=== PATIENT | male | born 1995 | race Caucasian/White ===

== ENCOUNTER 2017-07-08 21:31 | Emergency (ER) | payer BC ==
[~2017-07-08] VITALS: Ht 175.3 cm; Wt 67.2 kg
[2017-07-08 21:38] VITALS: TEMP 37.2; Ht 175.3 cm; Wt 67.2 kg
--- NOTE | 2017-07-08 22:26 | DIAGNOSTIC IMAGING REPORT ---
LEFT SHOULDER 2 VIEWS HISTORY: L shoulder dislocation and relocation COMPARISON: None. FINDINGS: No acute fracture or dislocation within the left shoulder. The left clavicle is intact. Small lucencies at the glenoid may be due to old postoperative change. Soft tissues are unremarkable. No radiopaque foreign bodies. IMPRESSION: No acute fracture or dislocation within the left shoulder. Electronically signed by: Payam Calvillo M.D. 07/08/2017 10:24 PM Dictated Date/Time: 07/08/2017 10:23 PM
[2017-07-08 23:14] VITALS: BP 138/81; PULSE 87; O2SAT 99
--- NOTE | 2017-07-09 00:55 | EMERGENCY ROOM VISIT NOTE ---
History Report prepared by Christian: Tommy Tanner Under the Supervision of: Dr. Russ Bowie D.O. First contact with patient: 21:51 Chief Complaint: SHOULDER DISLOCATION Stated Complaint: L SHOULDER DISLOCATION History of Present Illness The patient is a 21 year old male who presents to the Emergency Room with complaints of a sudden shoulder dislocation occurring prior to arrival. The patient states that he was playing basketball and went up for the ball, and he states that someone pulled the ball from his hands, and his left shoulder dislocated. He states that he was not hit, and he did not fall. The patient reports that he is having some numbness in his arm and hand, and he is nauseous. The patient states that he has dislocated his left shoulder before, though it always reduced on its own. He has had two surgeries on his left labrum before. He denies any vomiting and diarrhea. Patient has no other complaints including headache, neck pain, chest pain, belly pain or back pain. Source of History: patient Onset: prior to arrival Position: shoulder (left) Quality: other (dislocation) Timing: other (sudden) Associated Symptoms: + nausea, No vomiting, No diarrhea Review of Systems See HPI for pertinent positives & negatives. A total of 10 systems reviewed and were otherwise negative. Past Medical & Surgical Medical Problems: (1) Shoulder dislocation Surgical Problems: (1) H/O shoulder surgery Social History Smoking Status: Never Smoker Marital Status: single Housing Status: lives with roommate Occupation Status: [employer] student Current/Historical Medications No Active Prescriptions or Reported Meds Allergies Coded Allergies: No Known Allergies (Unverified , 07/08/17) Physical Exam Vital Signs Date Time Temp Pulse Resp B/P (MAP) Pulse Ox O2 Delivery O2 Flow Rate FiO2 07/08/17 23:14 87 18 138/81 99 07/08/17 21:38 37.2 112 24 120/77 96 Room Air Physical Exam GENERAL: Sitting up in bed, moderate distress, holding left arm with right upper extremity EYE EXAM: normal conjunctiva. OROPHARYNX: no exudate, no erythema, lips, buccal mucosa, and tongue normal and mucous membranes are moist NECK: supple, no nuchal rigidity, no adenopathy, non-tender LUNGS: Clear to auscultation. Normal chest wall mechanics HEART: no murmurs, S1 normal and S2 normal ABDOMEN: abdomen soft, non-tender, normo-active bowel sounds, no masses, no rebound or guarding. BACK: Back is symmetrical on inspection and there is no deformity, no midline tenderness, no CVA tenderness. SKIN: no rashes and no bruising UPPER EXTREMITIES: Left humeral head is located anteriorly with an empty glenohumeral fossa. Radial pulse 2/4. Flexion and extension of the shoulder, wrist, grasp, along with abduction are 5/5. Paresthesias throughout. LOWER EXTREMITIES: No pitting edema. NEURO EXAM: Normal sensorium Medical Decision & Procedures ER Provider Diagnostic Interpretation: Radiology results as stated below per my review and the radiologist's interpretation: LEFT SHOULDER 2 VIEWS HISTORY: L shoulder dislocation and relocation COMPARISON: None. FINDINGS: No acute fracture or dislocation within the left shoulder. The left clavicle is intact. Small lucencies at the glenoid may be due to old postoperative change. Soft tissues are unremarkable. No radiopaque foreign bodies. IMPRESSION: No acute fracture or dislocation within the left shoulder. Electronically signed by: Payam Calvillo M.D. 07/08/2017 10:24 PM Dictated Date/Time: 07/08/2017 10:23 PM Procedure Anterior Shoulder Dislocation Reduction Indication: anterior shoulder dislocation Verbal consent obtained. Risks and benefits were explained with the usual customary discussion. A time out was taken. Neurovascular examination before the procedure revealed some paresthesia otherwise intact. The left shoulder glenohumeral dislocation was reduced by placing the patient prone and applying gentle downward inline traction on the humerus, with the elbow flexed at 90 degrees, while scapula manipulation was applied. This resulted in an easy reduction without complication. Neurovascular examination after the procedure revealed neurologically intact. The patient had significant pain relief and tolerated the procedure well. ED Course ED COURSE: Vital signs were reviewed and showed tachycardia The patients medical record was reviewed The above diagnostic studies were performed and reviewed. ED treatments and interventions as stated above. 2156: The patient was evaluated in room B9. A complete history and physical examination was performed. The shoulder was reduced as described above. 2319: Upon reevaluation, the patient is feeling better.I discussed my findings with the patient and he understands and agrees with the treatment plan. Based on the patients age, coexisting illnesses, exam and lab findings the decision to treat as an outpatient was made. The patient remained stable while under my care. The patient appeared well at the time of discharge. Medical Decision Differential diagnosis: Etiologies such as fracture, dislocation, neurovascular compromise, compartment syndrome, soft tissue injury, as well as others were entertained. Patient is a 21-year-old male who was playing basketball when another player pulled the ball way. At this point he dislocated his left shoulder. He has had this happen to him multiple times before in the past. All the times it was reduced on its own. 2 previous surgeries. He does have diffuse paresthesias throughout his left upper extremity. On exam clear anterior left shoulder dislocation. He was reduced by myself at bedside and he tolerated this procedure well. He was completely neurologically intact following this. X- rays show no acute fracture. Patient was placed in a shoulder immobilizer. He is instructed to follow up with orthopedics as an outpatient. Patient will need to take Tylenol or Motrin as needed for pain. In ice his shoulder. Discussed with Pt concerning signs and symptoms to watch out for. Pt was instructed to follow up with their PCP and discussed with the patient their option to return to the ED at anytime for persistent or worsening symptoms. The appropriate anticipatory guidance and out-patient management, including indications for return to the emergency department, were explained at length to the patient and understood. Medication Reconcilliation Current Medication List: was personally reviewed by me Blood Pressure Screening Patient's blood pressure: Normal blood pressure Impression Primary Impression: Anterior shoulder dislocation Scribe Attestation The scribe's documentation has been prepared under my direction and personally reviewed by me in its entirety. I confirm that the note above accurately reflects all work, treatment, procedures, and medical decision making performed by me. Departure Information Dispostion Home / Self-Care Prescriptions No Active Prescriptions or Reported Meds Referrals No Doctor, Assigned (PCP) Forms HOME CARE DOCUMENTATION FORM, IMPORTANT VISIT INFORMATION, WORK / SCHOOL INSTRUCTIONS Patient Instructions ED Dislocation Shoulder Redu, My [facility] Additional Instructions Please follow up with your primary care doctor with in the next 24 hours. Any worsening of your symptoms, please return to the ED immediately. This includes any fevers greater than 100.4, worsening pain, chest pain, shortness breath, persistent nausea, vomiting, unable to eat or drink, or any other concerning signs or symptoms from your standpoint. Please take Tylenol or Motrin as needed for pain. Please follow up with orthopedics as an outpatient. Problem Qualifiers Primary Impression: Anterior shoulder dislocation Encounter type: initial encounter Laterality: left Qualified Codes: S43.015A - Anterior dislocation of left humerus, initial encounter
== END 2017-07-08 23:15 | disposition home or self-care (01) ==
LOC: C.EDB 21:33
DX: S43.015A Anterior dislocation of left humerus, initial encounter (principal); X50.1XXA Overexertion from prolonged static or awkward postures, initial encounter; Y92.310 Basketball court as the place of occurrence of the external cause; Y93.67 Activity, basketball